=== PATIENT | male | born 1995 | race Caucasian/White ===

== ENCOUNTER 2017-04-17 19:32 | Emergency (ER) | payer BC, OTHER ==
[~2017-04-17] VITALS: Ht 180.3 cm; Wt 79.5 kg
[~2017-04-17 19:32] MED LIST: [UNRECOGNIZED DRUG - REMARK]
[2017-04-17 19:35] VITALS: TEMP 37.3; Ht 180.3 cm; Wt 79.5 kg
[2017-04-17] MEDS ORDERED: SODIUM CHLORIDE 0.9% 1000ML 1,000 ML IV STA ×2 (20:25→20:36)
[2017-04-17] MEDS ORDERED: ONDANSETRON INJ 2 MG/ML 2 ML VIAL IV STA ×2 (20:25→20:36)
[2017-04-17] MEDS ORDERED: GI COCKTAIL PO ONE ×2 (20:30→20:45)
[2017-04-17] MEDS ORDERED: ALUMINUM/MAGNESIUM SUSP 30 ML UDC ONE (20:42)
[2017-04-17] MEDS ORDERED: LIDOCAINE HCL 2% VISC SOLN 20 ML UDC ONE (20:42)
[2017-04-17 20:47] LABS: BASO % 0.5 %; BASO ABS # 0.05 K/uL (0-0.2); COMPLETE YES; EOS % 1.2 %; HEMATOCRIT 48.8 % (42-52); IG% 0.2 %; LYMPH % 18.2 %; LYMPH ABS # 1.82 K/uL (1.2-3.4); MEAN CELL VOLUME 88.6 fL (80-100); MEAN CORPUSCULAR HEMOGLOBIN 30.9 pg (25-34); MEAN CORPUSCULAR HGB CONC 34.8 g/dl (32-36); MEAN PLATELET VOLUME 9.9 fL (7.4-10.4); MONO % 16.8 %; NEUT % 63.1 %; PLATELET COUNT 237 K/uL (130-400); RED BLOOD COUNT 5.51 M/uL (4.7-6.1); WHITE BLOOD COUNT 10.01 K/uL (4.8-10.8)
[2017-04-17 20:57] LABS: BUN/CREATININE RATIO 6.1 (10-20); CALCIUM 9.7 mg/dl (8.5-10.1); CREATININE 1.2 mg/dl (0.60-1.40); POTASSIUM 3.8 mmol/L (3.5-5.1)
--- NOTE | 2017-04-17 21:03 | EMERGENCY ROOM VISIT NOTE ---
History First contact with patient: 20:00 Chief Complaint: GI ASSESSMENT Stated Complaint: NAUSEA,STOMACH BLOATING,FEVER Nursing Triage Summary: Patient c/o abdominal pain, nausea, and bloating after returning from [facility] a few days ago. Denies vomiting. History of Present Illness The patient is a 21 year old male who presents to the Emergency Room with complaints of abdominal bloating and fever. The patient has recently returned from [facility] and 5 days ago before his return he ingested meat and cheese made by a local at his residence along with beer. The patient immediately had bloating afterwards and states that his "stomach felt like it was going to explode". He says that leading up to that point he had been fairly constipated and was also constipated in the days that followed. Yesterday he reports 2 episodes of loose stool, the first being dark and black and the second was more yellowish in color. He also began to feel fairly more bloated. He went to [facility] this afternoon and was found to have a fever and was recommended to come to the ED. He is currently having no abdominal discomfort but is anxious about his recent abdominal discomfort and travel. He denies any vomiting but is nauseous at this time. He denies any chills, chest pain, headache, urinary changes, or any other acute changes. Review of Systems See HPI for pertinent positives and negatives. A total of ten systems were reviewed and were otherwise negative. Family History Heart disease Hypertension Kidney disease Kidney stones Social History Smoking Status: Never Smoker Current/Historical Medications No Active Prescriptions or Reported Meds Allergies Coded Allergies: No Known Allergies (Unverified , 04/17/17) Physical Exam Vital Signs Date Time Temp Pulse Resp B/P (MAP) Pulse Ox O2 Delivery O2 Flow Rate FiO2 04/17/17 19:35 37.3 98 18 159/92 94 Room Air Physical Exam GENERAL: Awake, alert, well-appearing, in no distress HENT: Normocephalic, atraumatic. Oropharynx unremarkable. EYES: Normal conjunctiva. Sclera non-icteric. NECK: Supple. No nuchal rigidity. RESPIRATORY: Clear to auscultation. CARDIAC: Regular rate, normal rhythm. Extremities warm and well perfused. Pulses equal. ABDOMEN: Soft, non-distended. No tenderness to palpation. No rebound or guarding. No masses. RECTAL: Deferred. MUSCULOSKELETAL: Chest examination reveals no tenderness. The back is symmetrical on inspection without obvious abnormality. There is no CVA tenderness to palpation. LOWER EXTREMITIES: Calves are equal size bilaterally and non-tender. No edema. No discoloration. NEURO: Normal sensorium. No sensory or motor deficits noted. SKIN: No rash or jaundice noted. Medical Decision & Procedures Laboratory Results 04/17/17 19:45 Red Blood Count 5.51, Mean Corpuscular Volume 88.6, Mean Corpuscular Hemoglobin 30.9, Mean Corpuscular Hemoglobin Concent 34.8, Mean Platelet Volume 9.9, Neutrophils (%) (Auto) 63.1, Lymphocytes (%) (Auto) 18.2, Monocytes (%) (Auto) 16.8, Eosinophils (%) (Auto) 1.2, Basophils (%) (Auto) 0.5, Neutrophils # (Auto ) 6.32, Lymphocytes # (Auto) 1.82, Monocytes # (Auto) 1.68, Eosinophils # (Auto ) 0.12, Basophils # (Auto) 0.05 04/17/17 19:45 Test 04/17/17 19:45 White Blood Count 10.01 K/uL (4.8-10.8) Red Blood Count 5.51 M/uL (4.7-6.1) Hemoglobin 17.0 g/dL (14.0-18.0) Hematocrit 48.8 % (42-52) Mean Corpuscular Volume 88.6 fL (80-100) Mean Corpuscular Hemoglobin 30.9 pg (25-34) Mean Corpuscular Hemoglobin Concent 34.8 g/dl (32-36) Platelet Count 237 K/uL (130-400) Mean Platelet Volume 9.9 fL (7.4-10.4) Neutrophils (%) (Auto) 63.1 % Lymphocytes (%) (Auto) 18.2 % Monocytes (%) (Auto) 16.8 % Eosinophils (%) (Auto) 1.2 % Basophils (%) (Auto) 0.5 % Neutrophils # (Auto) 6.32 K/uL (1.4-6.5) Lymphocytes # (Auto) 1.82 K/uL (1.2-3.4) Monocytes # (Auto) 1.68 K/uL (0.11-0.59) Eosinophils # (Auto) 0.12 K/uL (0-0.5) Basophils # (Auto) 0.05 K/uL (0-0.2) RDW Standard Deviation 40.9 fL (36.4-46.3) RDW Coefficient of Variation 12.6 % (11.5-14.5) Immature Granulocyte % (Auto) 0.2 % Immature Granulocyte # (Auto) 0.02 K/uL (0.00-0.02) Anion Gap 7.0 mmol/L (3-11) Est Creatinine Clear Calc Drug Dose 104.5 ml/min Estimated GFR () 100.3 Estimated GFR (Non- 86.5 BUN/Creatinine Ratio 6.1 (10-20) Calcium Level 9.7 mg/dl (8.5-10.1) Total Bilirubin 0.7 mg/dl (0.2-1) Direct Bilirubin 0.1 mg/dl (0-0.2) Aspartate Amino Transf (AST/SGOT) 23 U/L (15-37) Alanine Aminotransferase (ALT/SGPT) 32 U/L (12-78) Alkaline Phosphatase 108 U/L (45-117) Total Protein 8.8 gm/dl (6.4-8.2) Albumin 4.3 gm/dl (3.4-5.0) Lipase 188 U/L (73-393) Medications Administered Medications (Trade) Dose Ordered Sig/Anish Route Start Time Stop Time Status Last Admin Dose Admin Ondansetron HCl (Zofran Inj) 4 mg NOW STAT IV 04/17/17 20:36 04/17/17 20:40 DC 04/17/17 20:36 4 MG Sodium Chloride 1,000 ml @ 999 mls/hr Q1H1M STAT IV 04/17/17 20:36 04/17/17 21:36 04/17/17 20:36 999 MLS/HR Al Hydroxide/Mg Hydroxide (Maalox Susp) 30 ml STK-MED ONCE .ROUTE 04/17/17 20:42 04/17/17 20:43 DC 04/17/17 20:42 30 ML Lidocaine HCl (Viscous Lidocaine 2% Soln) 20 ml STK-MED ONCE .ROUTE 04/17/17 20:42 04/17/17 20:43 DC 04/17/17 20:42 20 ML Medical Decision Patient is a 21 year old male that presents with a 5 day history of abdominal bloating and diarrhea Etiologies such as viral gastroenteritis, appendicitis, inflammatory bowel disease,PUD, biliary pathology, pancreatitis,infections, as well as others were entertained. Labs: CBC, BMP, LFT, Lipase Medications: Zofran, GI Cocktail Fluids: 1L NS Bolus Impression Primary Impression: Nausea Patient is a 21 year old male that presents with a 5 day history of nausea and bloating - The patient states he feels better after receiving the GI cocktail and Zofran - Labs appear to be within normal limits - Patient will be discharged home with Zofran and instructions to follow up with his primary care provider Departure Information Dispostion Home / Self-Care Condition GOOD Prescriptions Ondansetron Hcl (ZOFRAN) 4 Mg Tab 4 MG PO Q6H Y for Nausea, #10 TAB Prov: Dinesh Hutchinson MD 04/17/17 Referrals Ck Early M.D. (PCP) Patient Instructions My [facility]
[2017-04-17] MEDS ORDERED: ONDA4TAB46 PO (21:38)
[2017-04-17 21:52] VITALS: BP 128/83; PULSE 85; O2SAT 96
--- NOTE | 2017-04-17 23:05 | EMERGENCY ROOM VISIT NOTE ---
History Report prepared by Mirandaibyash: Chichi Gonzales Under the Supervision of: Dr. Jose Brandon D.O. First contact with patient: 20:00 Chief Complaint: GI ASSESSMENT Stated Complaint: NAUSEA,STOMACH BLOATING,FEVER Nursing Triage Summary: Patient c/o abdominal pain, nausea, and bloating after returning from [facility] a few days ago. Denies vomiting. History of Present Illness The patient is a 21 year old male who presents to the Emergency Room with complaints of persistent abdominal pain that began a few days ago. He currently rates his discomfort as a 2/10 in severity. The patient states that a few days ago he arrived back from [facility] after going on an exchange trip. He states that he had his Hepatitis shots prior to going on the trip. The patient states that he does not typically eat cheese, but while in the country he had a meal of meat, cheese, and beer. He states that since then he felt that his stomach was going to explode. The patient reports two loose bowel movements yesterday. He states that he went to his PCP's office today and was instructed to come to the emergency department for further evaluation and treatment after finding that he had a fever. The patient reports abdominal bloating and nausea. He additionally notes hives around his neck. Source of History: patient Onset: few days ago Position: abdomen Symptom Intensity: 2/10 Timing: other (persistent) Associated Symptoms: + nausea Note: Associated Symptoms: loose bowel movements, abdominal bloating, hives around neck Review of Systems See HPI for pertinent positives & negatives. A total of 10 systems reviewed and were otherwise negative. Past Medical & Surgical No pertinent history stated. Family History Heart disease Hypertension Kidney disease Kidney stones Social History Smoking Status: Never Smoker Marital Status: single Housing Status: lives with family Occupation Status: unemployed Current/Historical Medications Scheduled PRN Ondansetron Hcl (Zofran), 4 MG PO Q6H PRN for Nausea Allergies Coded Allergies: No Known Allergies (Unverified , 04/17/17) Physical Exam Vital Signs Date Time Temp Pulse Resp B/P (MAP) Pulse Ox O2 Delivery O2 Flow Rate FiO2 04/17/17 21:52 85 18 128/83 96 04/17/17 19:35 37.3 98 18 159/92 94 Room Air Physical Exam CONSTITUTIONAL/VITAL SIGNS: Reviewed / noted above. GENERAL: Non-toxic in appearance. INTEGUMENTARY: Warm, dry, and Marceline. HEAD: Normocephalic. EYES: without scleral icterus or trauma. ENT/OROPHARYNX: clear and moist. LYMPHADENOPATHY/NECK: Is supple without lymphadenopathy or meningismus. RESPIRATORY: Lungs clear and equal. CARDIOVASCULAR: Regular rate and rhythm. GI/ABDOMEN: Soft and nontender. No organomegaly or pulsatile mass. No rebound or guarding. Normal bowel sounds. EXTREMITIES: Warm and well perfused. BACK: No CVA tenderness. NEUROLOGICAL: Intact without focal deficits. PSYCHIATRIC: normal affect. MUSCULOSKELETAL: Normally developed with good muscle tone. Medical Decision & Procedures Laboratory Results 04/17/17 19:45 Red Blood Count 5.51, Mean Corpuscular Volume 88.6, Mean Corpuscular Hemoglobin 30.9, Mean Corpuscular Hemoglobin Concent 34.8, Mean Platelet Volume 9.9, Neutrophils (%) (Auto) 63.1, Lymphocytes (%) (Auto) 18.2, Monocytes (%) (Auto) 16.8, Eosinophils (%) (Auto) 1.2, Basophils (%) (Auto) 0.5, Neutrophils # (Auto ) 6.32, Lymphocytes # (Auto) 1.82, Monocytes # (Auto) 1.68, Eosinophils # (Auto ) 0.12, Basophils # (Auto) 0.05 04/17/17 19:45 Test 04/17/17 19:45 White Blood Count 10.01 K/uL (4.8-10.8) Red Blood Count 5.51 M/uL (4.7-6.1) Hemoglobin 17.0 g/dL (14.0-18.0) Hematocrit 48.8 % (42-52) Mean Corpuscular Volume 88.6 fL (80-100) Mean Corpuscular Hemoglobin 30.9 pg (25-34) Mean Corpuscular Hemoglobin Concent 34.8 g/dl (32-36) Platelet Count 237 K/uL (130-400) Mean Platelet Volume 9.9 fL (7.4-10.4) Neutrophils (%) (Auto) 63.1 % Lymphocytes (%) (Auto) 18.2 % Monocytes (%) (Auto) 16.8 % Eosinophils (%) (Auto) 1.2 % Basophils (%) (Auto) 0.5 % Neutrophils # (Auto) 6.32 K/uL (1.4-6.5) Lymphocytes # (Auto) 1.82 K/uL (1.2-3.4) Monocytes # (Auto) 1.68 K/uL (0.11-0.59) Eosinophils # (Auto) 0.12 K/uL (0-0.5) Basophils # (Auto) 0.05 K/uL (0-0.2) RDW Standard Deviation 40.9 fL (36.4-46.3) RDW Coefficient of Variation 12.6 % (11.5-14.5) Immature Granulocyte % (Auto) 0.2 % Immature Granulocyte # (Auto) 0.02 K/uL (0.00-0.02) Anion Gap 7.0 mmol/L (3-11) Est Creatinine Clear Calc Drug Dose 104.5 ml/min Estimated GFR () 100.3 Estimated GFR (Non- 86.5 BUN/Creatinine Ratio 6.1 (10-20) Calcium Level 9.7 mg/dl (8.5-10.1) Total Bilirubin 0.7 mg/dl (0.2-1) Direct Bilirubin 0.1 mg/dl (0-0.2) Aspartate Amino Transf (AST/SGOT) 23 U/L (15-37) Alanine Aminotransferase (ALT/SGPT) 32 U/L (12-78) Alkaline Phosphatase 108 U/L (45-117) Total Protein 8.8 gm/dl (6.4-8.2) Albumin 4.3 gm/dl (3.4-5.0) Lipase 188 U/L (73-393) Laboratory results as stated above per my review. Medications Administered Medications (Trade) Dose Ordered Sig/Anish Route Start Time Stop Time Status Last Admin Dose Admin Ondansetron HCl (Zofran Inj) 4 mg NOW STAT IV 04/17/17 20:36 04/17/17 20:40 DC 04/17/17 20:36 4 MG Sodium Chloride 1,000 ml @ 999 mls/hr Q1H1M STAT IV 04/17/17 20:36 04/17/17 21:36 DC 04/17/17 20:36 999 MLS/HR Al Hydroxide/Mg Hydroxide (Maalox Susp) 30 ml STK-MED ONCE .ROUTE 04/17/17 20:42 04/17/17 20:43 DC 04/17/17 20:42 30 ML Lidocaine HCl (Viscous Lidocaine 2% Soln) 20 ml STK-MED ONCE .ROUTE 04/17/17 20:42 04/17/17 20:43 DC 04/17/17 20:42 20 ML ED Course 2014: Previous medical records were reviewed. The patient was evaluated in room A10. A complete history and physical examination was performed by Dr. Hutchinson, Manager Of Financial Planning. 2024: Ordered Sodium Chloride 1000 ml @ 999 mls/hr IV, Zofran Inj 4 mg IV. 2025: Previous medical records were reviewed. The patient was evaluated in room A10. A complete history and physical examination was performed. 2029: Ordered GI Cocktail 24 ml PO. 2143: The patient was reevaluated and he was resting comfortably. Dr. Hutchinson discussed all the exam findings with the patient and he discussed the treatment plan. The patient verbalized complete understanding and agreement. The patient is ready to go home. Medical Decision Differential considered: pancreatitis, hepatitis, or acute cholecystitis, AAA, UTI, pyelonephritis, kidney stones, appendicitis, diverticulitis, shingles, bowel obstruction mesenteric ischemia, intussusception, hernia, testicular torsion. Medication Reconciliation: I attest that I have personally reviewed the patient' s current medication list. Blood pressure Screening: Patient was found to have normal blood pressure on screening and does not require follow-up. The patient was seen with the resident. The patient is a 21-year-old male who presents to the ED with a chief complaint of some nausea And some generalized abdominal discomfort. He was seen at urgent care and sent here for evaluation. He complains of some nausea but denies any abdominal discomfort or tenderness at this time. His physical exam was essentially normal. He was given Zofran IV and some IV fluids. Blood work did not reveal any abnormalities. The patient is felt to be stable for discharge. Impression Primary Impression: Nausea Scribe Attestation The scribe's documentation has been prepared under my direction and personally reviewed by me in its entirety. I confirm that the note above accurately reflects all work, treatment, procedures, and medical decision making performed by me. Departure Information Dispostion Home / Self-Care Prescriptions Ondansetron Hcl (ZOFRAN) 4 Mg Tab 4 MG PO Q6H Y for Nausea, #10 TAB Prov: Dinesh Hutchinson MD 04/17/17 Referrals Ck Early M.D. (PCP) Forms HOME CARE DOCUMENTATION FORM, IMPORTANT VISIT INFORMATION Patient Instructions My [facility] Additional Instructions - Zofran (Ondansetron) 4mg: Take 1 tabe every 6 hours as needed for nausea - Follow up with your primary care physician in the next week - If you present with any concerning symptoms including worsening abdominal pain , continued diarrhea, vomiting, fever, chills, or any other concerning symptoms please return to the emergency department by evalution or be seen by a physician
== END 2017-04-17 21:59 | disposition home or self-care (01) ==
LOC: C.EDB 19:33 → C.EDA 21:59
DX: R11.0 Nausea (principal); Z82.49 Family history of ischemic heart disease and other diseases of the circulatory system; Z84.1 Family history of disorders of kidney and ureter